=== PATIENT | male | born 1945 | race Caucasian/White ===

== ENCOUNTER 2017-09-15 14:13 | Emergency (ER) | payer BC, MEDICARE ==
[~2017-09-15 14:13] MED LIST: METH500T3 PO
[2017-09-15 14:14] VITALS: BP 139/65; PULSE 81; RESP 18; TEMP 98.2; O2SAT 99
--- NOTE | 2017-09-15 14:39 | RADRPT ---
EXAM DATE/TIME: 09/15/2017 14:35 [facility] COMPARISON: No previous studies available for comparison. INDICATIONS : Left wrist pain; Fall today. MEDICAL HISTORY : None. SURGICAL HISTORY : None. ENCOUNTER: Initial ACUITY: 1 day PAIN SCORE: 7/10 LOCATION: Left wrist. FINDINGS: Three view examination of the left wrist demonstrates no soft tissue swelling, dislocation, or fractu re. The carpal bones are in normal alignment. The joint spaces are maintained. Bony mineralization is normal. CONCLUSION: No acute disease. Omar Thibodeaux Jr., MD on September 15, 2017 at 14:36 Board Certified Radiologist. This report was verified electronically.
--- NOTE | 2017-09-15 14:53 | PD ---
HPI Chief Complaint: Injury Time Seen by Provider: 14:46 Travel History International Travel<30 days: No Contact w/Intl Traveler<30days: No Traveled to known affect area: No History of Present Illness HPI 71-year-old male presents to the emergency department for evaluation of left wrist pain. Patient states he tripped and fell and caught himself with his left wrist today. He denies any head injury or LOC. No neck pain or back pain. No chest pain or abdominal pain. No nausea, vomiting, diarrhea. No chest pain or abdominal pain. Patient currently rates pain 7/10 the left wrist without radiation. Pain is aching. Pain is exacerbated by movement, alleviated with rest. He denies any other injury. Moderate severity. PFSH Past Medical History Arthritis: Yes Blood Disorders: No Cardiovascular Problems: No High Cholesterol: Yes Diverticulitis: Yes Endocrine: No Immune Disorder: No Musculoskeletal: Yes Neurologic: No Reproductive: No Respiratory: No Past Surgical History Abdominal Surgery: Yes (HERNIA REPAIR) Other Surgery: No Social History Alcohol Use: No Tobacco Use: Yes (2 PPD) Substance Use: No Allergies-Medications (Allergen,Severity, Reaction): Coded Allergies: naproxen (Unverified Allergy, Severe, 03/08/17) Reported Meds & Prescriptions Reported Meds & Active Scripts Active Robaxin (Methocarbamol) 500 Mg Tab 500 Mg PO QID PRN Review of Systems Except as stated in HPI: all other systems reviewed are Neg Physical Exam Narrative GENERAL: Well-nourished, well-developed elderly male patient, ambulatory. Afebrile. SKIN: Focused skin assessment warm/dry. No lacerations or abrasions. HEAD: Normocephalic. Atraumatic. EYES: No scleral icterus. No injection or drainage. NECK: Supple, trachea midline. No JVD or lymphadenopathy. CARDIOVASCULAR: Regular rate and rhythm without murmurs, gallops, or rubs. Left radial pulse is 2+. RESPIRATORY: Breath sounds equal bilaterally. No accessory muscle use. Lungs sounds are clear to auscultation. GASTROINTESTINAL: Abdomen soft, non-tender, nondistended. MUSCULOSKELETAL: No cyanosis, or edema. Patient has tenderness over left dorsal wrist. He has full flexion-extension, but pain with movement. He has a normal grasp strength in the left hand. He has full sensation to distal left upper extremity. BACK: Nontender without obvious deformity. No CVA tenderness. Data Data Last Documented VS Vital Signs Date Time Temp Pulse Resp B/P (MAP) Pulse Ox O2 Delivery O2 Flow Rate FiO2 09/15/17 14:14 98.2 81 18 139/65 (89) 99 Orders Orders Wrist, Complete ([id number]) (09/15/17 ) MDM Medical Decision Making Medical Screen Exam Complete: Yes Emergency Medical Condition: Yes Medical Record Reviewed: Yes Interpretation(s) X-ray of the left wrist - CONCLUSION: No acute disease. Differential Diagnosis Fracture versus sprain versus contusion versus dislocation Narrative Course 71-year-old male presents to the emergency department for evaluation of left wrist injury after he tripped and fell. He denies any other injury other than left wrist pain. X-ray completed shows no acute bony abnormality. Patient is provided a Velcro left wrist splint. He is to take Tylenol [id number] as needed for pain. He is to ice and follow-up with a primary care physician. The patient was discharged in stable condition with instructions, including return instructions and follow up instructions. Diagnosis Primary Impression: Left wrist sprain Qualified Codes: S63.502A - Unspecified sprain of left wrist, initial encounter Referrals: Primary Care Physician call for appointment Patient Instructions: General Instructions, Wrist Sprain (ED) Additional Instructions: Ice for 20 mins 4-5 times daily. Elevate. [id number] Tylenol every 4 hours as needed for pain. Wear Velcro wrist splint as needed for support. Follow-up with your primary care physician. Return to the emergency department for any acute worsening of symptoms. Med/Other Pt SpecificInfo: No Change to Meds Disposition: 01 DISCHARGE HOME Condition: Stable Diana Crook SIL Sep 15, 2017 14:52
== END 2017-09-15 15:11 | disposition home or self-care (01) ==
LOC: NEPK 14:13
DX: S63.502A Unspecified sprain of left wrist, initial encounter (principal); F17.200 Nicotine dependence, unspecified, uncomplicated; W01.0XXA Fall on same level from slipping, tripping and stumbling without subsequent striking against object, initial encounter
CPT/HCPCS: 73110; 99283; L3908